=== PATIENT | male | born 1965 | race African-American/Black ===

== ENCOUNTER 2017-05-12 18:22 | Emergency (ER) | payer OTHER ==
[~2017-05-12 18:22] MED LIST: BENADRYL25 M3 PO; FLEXERIL PO; FLEXERIL10 MG PO; LIPITOR20 MG PO; METFORMIN HCL500 M1 PO; NORCO1 TAB 10/3 PO; PEPCID40 MG PO; PREDNISONE PO
[2017-05-12] MEDS ORDERED: NO MEDICATIONS (18:56)
== END 2017-05-12 20:07 | disposition home or self-care (01) ==
LOC: SED 18:22
DX: S39.011A Strain of muscle, fascia and tendon of abdomen, initial encounter (principal); E11.9 Type 2 diabetes mellitus without complications; F17.200 Nicotine dependence, unspecified, uncomplicated; Z88.6 Allergy status to analgesic agent; X50.0XXA Overexertion from strenuous movement or load, initial encounter
CPT/HCPCS: 99283